=== PATIENT | female | born 1950 | race Caucasian/White ===

== ENCOUNTER 2018-10-12 07:17 | Day surgery (SDC) | payer OTHER ==
--- NOTE | 2018-10-11 18:45 | PDGENHP ---
History and Physical History and Physical: Assessment and Plan: 1. Stress incontinence, female Carol has mixed urinary incontinence. It seems that the urge and overactive bladder is the most bothersome for her right now. I recommended that she try Myrbetriq 25 mg daily for 3 weeks. At the end of the 3-week trial she will return for a follow-up. At that time, we discussed insertion of a pessary to reposition the bladder and support the vaginal canal. This will hopefully help in the residual leaking. We will try a ring with knob since she has stress incontinence as well. We discussed that she could sit consider surgery in the future to repair all of these issues should the pessary be cumbersome. This would likely include a sacral colpopexy with mesh as well as a mid urethral sling. 2. Urge incontinence of urine 3. Cystocele, lateral 4. Rectocele 5. Vaginal atrophy I have recommended that she restart the Estrace cream. A new prescription was sent. She will use this 3 times per week at night before bed. Subjective Subjective: Patient ID: Carol is a 68 y.o. female who presents to [facility] for incontinence consult. HPI Carol Montejo presents for a preoperative visit. She is scheduled for a robotic sacral colpopexy and mid urethral sling. The risks, benefits, and alternatives were presented and informed consent was obtained. 40 minutes of this 40 minute appointment was spent counceling, reviewing the procedure in detail, and discussing the preoperative and postoperative instructions. Below is a copy of our prior visit note. Mirna is a 67-year-old para [address] Jorgensen, PCP for urinary incontinence. She notes a long history of stress incontinence and has morning pain on it for years. Newer over the last few months is the feeling of getting out of bed and leaking. This is mostly in the morning when she feels like she has a full bladder. Occasionally she will leak when she gets out of bed in the middle of the night. This is not large volumes. Sometimes she does feel difficulty emptying her bladder. She will feel done get up and more seems to come out. She has urinary frequency during the day at least every couple of hours. She wakes up in consistently at night to urinate but usually once. She feels discomfort in her vagina but not necessarily a bulge or pressure. She previously used estrogen cream but stopped that about a year ago because it was cumbersome. She notes that it is difficult to empty bowels. She has a history of a colon resection, her stools are formed. Sometimes it feels like they get stuck. She has a history of genital herpes and currently has an outbreak. She is on Valtrex. She had a hysterectomy many years ago. Her ovaries are still in place. Carol lives in [place] and works for the [employer]. CURRENT MEDICATIONS: Current Outpatient Medications Medication Sig albuterol HFA 90 mcg/actuation inhaler Inhale 2 puffs into the lungs every 4 hours as needed. atorvaSTATin (LIPITOR) 10 mg tablet Take 1 tablet by mouth daily. cholecalciferol (VITAMIN D3) 1,000 unit tablet Take 1,000 Units by mouth daily. cyanocobalamin, vitamin B-12, (VITAMIN B-12 PO) dexlansoprazole (DEXILANT) 60 mg capsule Take 1 capsule by mouth daily. estradiol (ESTRACE) 0.01 % (0.1 mg/gram) vaginal cream Place 1 gram vaginally three times per week at night. mirabegron (MYRBETRIQ) 25 mg 24 hr tablet Take 1 tablet by mouth daily. multivitamin (HEXAVITAMIN) per tablet Take 1 tablet by mouth daily. PSYLLIUM SEED, WITH DEXTROSE, (FIBER PO) Take 1 capsule by mouth. valACYclovir (VALTREX) 500 mg tablet Take 1 tablet by mouth 2 times daily. For 3 days at first sign of outbreake No current facility-administered medications for this visit. ALLERGIES: Sulfa (sulfonamide antibiotics) and Penicillins I have reviewed, verified and agree with the past medical, surgical and history as documented by the RN today. Review of Systems Objective Objective: Vital Signs: There were no vitals taken for this visit. Physical Exam Constitutional: She is oriented to person, place, and time. She appears well- developed and well-nourished. Abdominal: Soft. There is no tenderness. Musculoskeletal: Normal range of motion. Neurological: She is alert and oriented to person, place, and time. Skin: Skin is warm and dry. Psychiatric: She has a normal mood and affect. Her behavior is normal. Pelvic: Normal external genitalia. Gaping introitus. Mild urinary caruncle. Herpetic lesion 7 o clock position at the vaginal introitus. Grade 2 cystocele. Mild rectocele. No obvious urinary leakage with cough. Uterus absent. Adnexa non -tender no masses. No vaginal bleeding or discharge. Atrophic vaginal tissue. Procedures DATA: N/A TIME/COUNSELING: I personally spent a total of 45 minutes. Of that 40 minutes was counseling/ coordination of patient's care. See my note above for details. Gregor Meng MD
[2018-10-12] MEDS ORDERED: ACETAMINOPHEN 500 MG TAB PO ONE (07:22)
[2018-10-12] MEDS ORDERED: GABAPENTIN 300 MG CAP PO ONE (07:22)
[2018-10-12] MEDS ORDERED: ceFAZolin 2 GM/DEXTROSE 100 ML IV ONE (07:22)
[2018-10-12] MEDS ORDERED: PHENAZOPYRIDINE HCL 200 MG TAB PO ONE (07:22)
[2018-10-12] MEDS ORDERED: LR 1,000 ML IV ONE (07:23)
[2018-10-12] MEDS ORDERED: LIDOCAINE 1% 2 ML INJ ID PRN (07:23)
[2018-10-12] MEDS ORDERED: MIDAZOLAM 2 MG/2 ML VIAL IVP ONE (08:02)
--- NOTE | 2018-10-12 08:02 | PDANEPAE ---
ANE History of Present Illness DaVinci assist sacrocolpopexy, retropubic sling, cystoscopy ANE Past Medical History - Cardiovascular History Hx Hypertension: No Hx Arrhythmias: No Hx Chest Pain: No Hx Coronary Artery / Peripheral Vascular Disease: No Hx CHF / Valvular Disease: No Hx Palpitations: No Cardiovascular History Comment: high chol - Pulmonary History Hx COPD: No Hx Asthma/Reactive Airway Disease: Yes Hx Recent Upper Respiratory Infection: No Hx Oxygen in Use at Home: No Hx Sleep Apnea: Yes Sleep Apnea Screening Result - Last Documented: Positive Pulmonary History Comment: prn inhaler. ada positive- cpap - Neurologic History Hx Cerebrovascular Accident: No Hx Seizures: No Hx Dementia: No Neurologic History Comment: hx of cervical fusion in - Endocrine History Hx Diabetes: No - Renal History Hx Renal Disorders: Yes Renal History Comment: overactive bladder - Liver History Hx Hepatic Disorders: No - Neurological & Psychiatric Hx Hx Neurological and Psychiatric Disorders: No - Cancer History Hx Cancer: No - Congenital Disorder History Hx Congenital Disorders: No - GI History Hx Gastrointestinal Disorders: Yes Gastrointestinal History Comment: gerd. hx of colon resection for severe diverticulitis - Other Health History Other Health History: wears glasses. dental implant x1 - Chronic Pain History Chronic Pain: No - Surgical History Prior Surgeries: hysterectomy. colon resection. nasal surgery. carpal tunnel. trigger finger. tonsillectomy as child. appy. cervical fusion ANE Review of Systems Review of systems is: negative Review of Systems: - Exercise capacity METS (RN): 4 METS ANE Patient History - Allergies Allergies/Adverse Reactions: Penicillins Allergy (Verified 09/29/18 11:05) Rash Sulfa (Sulfonamide Antibiotics) Allergy (Verified 09/29/18 11:05) whole body swelling and hives - Home Medications Home medications: home medication list seen and reviewed Home Medications: Atorvastatin Calcium 09/29/18 [Last Taken Unknown] DEXILANT 09/29/18 [Last Taken Unknown] Estrogen Cream 09/29/18 [Last Taken Unknown] Herbals/Supplements -Info Only 09/29/18 [Last Taken Unknown] Myrbetriq 09/29/18 [Last Taken Unknown] - NPO status NPO Since - Liquids (Date): 10/12/18 NPO Since - Liquids (Time): 05:30 NPO Since - Solids (Date): 10/11/18 NPO Since - Solids (Time): 18:00 - Anes Hx Anes Hx: no prior problems - Smoking Hx Smoking Status: Never smoked - Family Anes Hx Family Anes Hx: none Family Hx Anesthesia Complications: none ANE Labs/Vital Signs - Vital Signs Vital Signs: reviewed preoperatively; see RN documention for details Blood Pressure: 150/84 Heart Rate: 76 Respiratory Rate: 18 O2 Sat (%): 94 Height: 160.02 cm Weight: 81.647 kg ANE Physical Exam - Airway Neck exam: FROM Mallampati Score: Class 2 Mouth exam: normal dental/mouth exam - Pulmonary Pulmonary: no respiratory distress - Cardiovascular Cardiovascular: regular rate and rhythym - ASA Status ASA Status: II ANE Anesthesia Plan Anesthesia Plan: general endotracheal anesthesia
--- NOTE | 2018-10-12 08:42 | PDHPUP ---
History & Physical Update H&P update statement: This history and physical update is based on an assessment of the patient which was completed after admission or registration (within 24 hours), but prior to the surgery/procedure. H&P update: H&P reviewed & patient examined, no change in patient's condition since H&P completed
[2018-10-12] MEDS ORDERED: BUPIVACAINE 0.5% 30 ML SDV ONE (09:03)
[2018-10-12] MEDS ORDERED: DEXAMETHASONE 4 MG/ML VIAL ONE (09:12)
[2018-10-12] MEDS ORDERED: LIDOCAINE 2% 100 MG/5 ML SYR ONE (09:12)
[2018-10-12] MEDS ORDERED: ROCURONIUM 50 MG/5 ML VIAL ONE ×2 (09:12→10:39)
[2018-10-12] MEDS ORDERED: PROPOFOL 200 MG/20 ML VIAL ONE (09:12)
[2018-10-12] MEDS ORDERED: SUGAMMADEX SODIUM 200 MG/2 ML VIAL IVP ONE (09:12)
[2018-10-12] MEDS ORDERED: ONDANSETRON 4 MG/2 ML VIAL ONE ×2 (09:12→11:58)
[2018-10-12] MEDS ORDERED: fentaNYL 250 MCG/5 ML INJ ONE (09:12)
[2018-10-12] MEDS ORDERED: BUPIVACAINE/EPI 0.5% 30 ML SDV ONE (09:22)
[2018-10-12] MEDS ORDERED: HYDROmorphONE/DILAUDID 1 MG/ML INJ IVP PRN ×2 (10:46→12:39)
[2018-10-12] MEDS ORDERED: fentaNYL 100 MCG/2 ML INJ IVP PRN ×2 (10:46→12:39)
[2018-10-12] MEDS ORDERED: PROMETHAZINE HCL 25 MG/ML INJ IVP PRN ×2 (10:46→12:39)
[2018-10-12] MEDS ORDERED: oxyCODONE IR 5 MG TAB PO PRN ×2 (10:46→12:39)
[2018-10-12] MEDS ORDERED: MEPERIDINE 25 MG/0.5 ML AMP IVP PRN ×2 (10:46→12:39)
[2018-10-12] MEDS ORDERED: LABETALOL HCL 5 MG/ML 20 ML MDV IVP PRN (10:46)
[2018-10-12] MEDS ORDERED: NALOXONE HCL 0.4 MG/ML INJ IVP PRN ×2 (10:46→12:39)
--- NOTE | 2018-10-12 10:47 | POSTANESTH ---
Post Anesthetic Evaluation Cardiovascular Status: Normal, Stable, Similar to Pre-Op Cond Respiratory Status: Similar to Pre-op Cond. Level of Consciousness/Mental Status: Can Participate in Eval, Mildly Sleepy, Arousable Pain Control: Adequate, Prn Tx Ordered Nausea/Vomiting Control: Adequate, Prn Tx Ordered Complications Possibly Related to Anesthesia: None Noted
[2018-10-12] MEDS ORDERED: PROMETHAZINE HCL 25 MG/ML INJ ONE (12:00)
--- NOTE | 2018-10-12 12:00 | POSTOPPROG ---
Post Op Note Date of Operation: 10/12/18 Surgeon: Gregor Meng Yarn Finisher: Carol Melgar Anesthesiologist: Mavis Anesthesia: GET(General Endotracheal) Pre-op Diagnosis: vaginal prolapse, stress incontinence Post-op Diagnosis: Same Procedure: Robotic sacrocolpopexy, TOT sling, cysto, BSO Findings: Ureters function at end of case Inf/Abcess present in the surg proc area at time of surgery?: No EBL: Minimal Complications: None
[2018-10-12 20:42] VITALS: BP 140/71
--- NOTE | 2018-10-13 10:18 | GOP ---
[f rep st] OPERATIVE REPORT DATE OF OPERATION: 10/12/2018 SURGEON: Gregor Meng MD LICENSED CLUB MANAGER: Carol Melgar CFA. ANESTHESIA: General. PREOPERATIVE DIAGNOSIS: 1. Cystocele. 2. Rectocele. 3. Vaginal vault prolapse. 4. Stress urinary incontinence. POSTOPERATIVE DIAGNOSIS: 1. Cystocele. 2. Rectocele. 3. Vaginal vault prolapse. 4. Stress urinary incontinence. 5. Pelvic adhesions. 6. Right ovarian cyst. PROCEDURE PERFORMED: 1. Robotic-assisted sacral colpopexy with mesh. 2. Repair of cystocele and rectocele. 3. Bilateral salpingo-oophorectomy. 4. Right ureterolysis. 5. Transobturator sling. 6. Cystoscopy. FINDINGS: SPECIMENS: Bilateral tubes and ovaries. ESTIMATED BLOOD LOSS: Scant. DESCRIPTION OF PROCEDURE: The patient was taken to the operating room where she was identified. Gen eral anesthesia was administered and found to be adequate. She was placed in the lithotomy position and prepared and draped in normal sterile fashion. A Jorgensen catheter was placed in her bladder. An 8 mm infraumbilical incision was made with a scalpel. The Veress needle with the CO2 gas flowing was advanced into the peritoneal cavity. The abdomen was then insufflated with carbon dioxide gas. An 8 mm trocar followed by the laparoscope were then inserted. Two lateral ports were placed on either s keagan under direct visualization. The upper abdomen was examined and was unremarkable. She was placed in Trendelenburg position and the [employer] robot docked on the left side. The instruments were broug ht into the abdominal cavity under direct visualization. I was in the pelvis. She had a benign appe aring cystic structure on the right ovary. As a result, a bilateral salpingo-oophorectomy was perfor med. The adnexa were freed from the pelvic sidewall. The right ovary was adherent overlying the rig ht ureter. As a result, a right ureterolysis was required. The peritoneum over the pelvic brim was incised. The ureter was gently dissected free and lateralized off the overlying peritoneum from the pelvic brim all the way down to the bladder. Once this was accomplished, the remainder of the adhesi ons were taken down. The infundibulopelvic vessels were cauterized and divided bilaterally. The spe cimens were sent to Pathology for permanent section. A stent was placed in the vagina. The bladder was gently dissected off the anterior vaginal wall alexa n to the level of bladder neck. The rectum was dissected off the posterior vaginal wall down to the level of the perineal body. Measurements were then obtained and the mesh trimmed to size. The sigmo id colon was retracted laterally. The peritoneum over the sacral promontory was incised and the fat pad gently dissected off the anterior longitudinal ligament. The mesh was brought into the abdominal cavity. Three sutures of 4-0 [place] were used to attach the distal posterior mesh to the perineal body. Two additional rows of [place] sutures were placed posteriorly. Three rows were placed ante riorly to suture the anterior mesh down to the level of the bladder neck and laterally to the paravag inal tissue. The stent was then removed. The sacral arm of the mesh was placed over the promontory and the tension adjusted to resolve the cystocele and rectocele without undue tension on the vagina. Two sutures of 2-0 [place] were used to attach the mesh to the anterior longitudinal ligament at th e level of the upper sacral vertebral body below the intervertebral disk space. The peritoneum was t hen closed over the entire mesh. Of note, the patient had a prior colectomy. The small bowel was al so adherent to the right pelvic sidewall. Contributing to the adhesions and need for the right urete rolysis. The robot was then undocked. The fascia was closed with 0 Vicryl, skin with 4-0 Monocryl. A midurethral incision was then made with a scalpel. Tunnels were created bilaterally out to the obt urator internus muscles. Skin incisions were made over the obturator notches. The Halo trocar was p laced through the left skin incision, redirected around the ischial pubic rami and out through the va ginal incision using a vaginal finger as a guide. The lateral sulci were examined and no evidence of vaginal injury had occurred. The exact same procedure was performed on the patient's right side. T he sling was then adjusted to allow a small midurethral gap. The vaginal epithelium was closed with 2-0 Vicryl, the skin with 4-0 Monocryl. Cystoscopy was then performed. Both ureters had vigorous jets of urine. There was no evidence of bl adder, nor urethral injury seen. There was no mesh, nor sutures seen within the bladder or urethra. No obvious pathology was seen. Vaginal packing was then placed. Anesthesia was reversed. The maik ent was taken to PACU awake, in stable condition. COMPLICATIONS: None. DISPOSITION: Patient stable to PACU. /[id number]/MODL
== END 2018-10-12 16:09 | disposition home or self-care (01) ==
LOC: FSGY 07:17
PROVIDERS: ATTEND Obstetrics & Gynecology
DX: N81.2 Incomplete uterovaginal prolapse (principal); N39.46 Mixed incontinence; G47.33 Obstructive sleep apnea (adult) (pediatric); Z90.49 Acquired absence of other specified parts of digestive tract
CPT/HCPCS: C1763; C1771; J0690; J1100; J2001; J2250; J2405; J2550; J2704; J3010